=== PATIENT | female | born 1990 | race African-American/Black ===

== ENCOUNTER 2017-02-13 07:18 | Emergency (ER) | payer MEDICAID, OTHER ==
[~2017-02-13] VITALS: Ht 167.6 cm; Wt 68.0 kg
[2017-02-13 08:22] VITALS: BP 99/79
[2017-02-13] MEDS ORDERED: AZITHROMYCIN 250 MG TAB PO ONE (09:00)
[2017-02-13] MEDS ORDERED: cefTRIAXone SODIUM 250 MG VL IM ONE (09:00)
== END 2017-02-13 09:26 | disposition home or self-care (01) ==
LOC: ER 07:19
DX: N76.0 Acute vaginitis (principal)
CPT/HCPCS: 99283; J0696

== ENCOUNTER → 2023-06-14 | Outpatient (CLI) | payer OTHER ==
[2023-06-15 05:07] LABS: Mumps IgG Antibody 38.8 AU/mL (Immune >10.9)
== END | disposition home or self-care (01) ==
LOC: LAB 13:09
PROVIDERS: ATTEND Licensed Practical Nurse
DX: Z01.84 Encounter for antibody response examination (principal)
CPT/HCPCS: 36415; 86706; 86735; 86762; 86765; 86787

== ENCOUNTER 2024-11-20 08:05 | Emergency (ER) | payer MEDICAID, OTHER ==
[~2024-11-20] VITALS: Ht 167.6 cm; Wt 95.9 kg
[2024-11-20 08:35] VITALS: BP 112/79; PULSE 80; RESP 16; TEMP 98.6; O2SAT 97
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
[2024-11-20] MEDS ORDERED: METH-1182 PO (09:10)
[2024-11-20] MEDS ORDERED: IBUP-1456 PO (09:10)
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
== END 2024-11-20 09:13 | disposition home or self-care (01) ==
LOC: ER 08:05
DX: S16.1XXA Strain of muscle, fascia and tendon at neck level, initial encounter (principal); S46.912A Strain of unspecified muscle, fascia and tendon at shoulder and upper arm level, left arm, initial encounter; M25.561 Pain in right knee; M25.572 Pain in left ankle and joints of left foot; V89.2XXA Person injured in unspecified motor-vehicle accident, traffic, initial encounter; Y93.89 Activity, other specified; Y92.89 Other specified places as the place of occurrence of the external cause; Y99.8 Other external cause status
CPT/HCPCS: 72040